=== PATIENT | male | born 1990 | race Caucasian/White ===

== ENCOUNTER 2022-06-05 04:10 | Emergency (ER) | payer SELFPAY ==
[~2022-06-05] VITALS: Ht 175.3 cm; Wt 113.5 kg
[2022-06-05 05:19] LABS: BASOPHILS % 0.5 % (0.0-2.0); HEMATOCRIT. 50.9 % (42.0-52.0); HEMOGLOBIN. 17.8 g/dL (14.0-18.0); LYMPHOCYTES % 48.5 % (20.0-50.0); MEAN CORPUSCULAR VOLUME 85.8 fL (80.0-94.0); MEAN PLATELET VOLUME 7.4 fl (7.4-10.4); MONOCYTES % 7.3 % (2.0-8.0); NEUTROPHILS % 41.7 % (40.0-76.0); PLATELET 285 x1000/uL (130-400); RED BLOOD CELL COUNT 5.94 mill/uL (4.7-6.1); RED CELL DISTRIBUTION WIDTH 13.2 % (11.6-14.6)
[2022-06-05 05:25] LABS: CHLORIDE 99 mEq/L (98-107)
[2022-06-05] MEDS ORDERED: SODIUM CHLORIDE 0.9% 1,000 ML IV ONE (05:30)
[2022-06-05] MEDS ORDERED: METOCLOPRAMIDE HCL 10MG/2ML VIAL IV ONE (05:30)
[2022-06-05] MEDS ORDERED: ASPIRIN 81MG TABLET PO ONE (05:30)
[2022-06-05] MEDS ORDERED: ACETAMINOPHEN 325MG TABLET PO ONE (05:30)
[2022-06-05 05:33] LABS: ETHANOL BLOOD < 10 mg/dL
[2022-06-05 12:07] LABS: CLARITY URINE CLEAR (CLEAR); COLOR URINE YELLOW (YELLOW); KETONES URINE 1+ (NEGATIVE); LEUKOCYTE ESTERASE URINE NEGATIVE (NEGATIVE); NITRITE URINE NEGATIVE (NEGATIVE); OCCULT BLOOD URINE NEGATIVE (NEGATIVE); PROTEIN URINE TRACE (NEGATIVE); SPECIFIC GRAVITY URINE 1.048 (1.005-1.030); UROBILINOGEN URINE 0.2 E.U./dL (0.2-1.0)
[2022-06-05 12:35] LABS: *AMPHETAMINES SCREEN URINE NEGATIVE (NEGATIVE); *BARBITURATES SCREEN URINE NEGATIVE (NEGATIVE); *BENZODIAZEPINES SCREEN URINE NEGATIVE (NEGATIVE); *COCAINE SCREEN URINE NEGATIVE (NEGATIVE); CANNABINOID URINE SCREEN NEGATIVE (NEGATIVE); METHADONE URINE SCREEN NEGATIVE (NEGATIVE); OPIATES URINE SCREEN NEGATIVE (NEGATIVE); PHENCYCLIDINE URINE SCREEN NEGATIVE (NEGATIVE)
[2022-06-05] MEDS ORDERED: DIPHENHYDRAMINE 50MG/ML VIAL IV PRN (13:30)
[2022-06-05] MEDS ORDERED: TRAMADOL 50MG TABLET PO PRN (13:30)
[2022-06-05] MEDS ORDERED: ACETAMINOPHEN 325MG TABLET PO PRN ×2 (13:30)
[2022-06-05] MEDS ORDERED: GUAIFENESIN 200MG/10ML SUGAR FREE UDC PO PRN (13:30)
[2022-06-05] MEDS ORDERED: CLONIDINE 0.1MG TABLET PO PRN (13:30)
[2022-06-05] MEDS ORDERED: NALOXONE HCL 0.4MG/ML VIAL IV PRN (13:45)
[2022-06-05 14:00] VITALS: BP 136/87
[2022-06-05] MEDS ORDERED: DEXTROSE 50% WATER 50ML SYRINGE IV PRN (14:15)
[2022-06-05] MEDS ORDERED: CLOPIDOGREL 75MG TABLET PO SCH (14:30)
[2022-06-05] MEDS ORDERED: SUMATRIPTAN SUCCINATE 25MG TABLET PO NR (14:45)
[2022-06-05] MEDS ORDERED: MAGNESIUM GLUCONATE 500MG TABLET PO SCH (14:45)
[2022-06-05] MEDS ORDERED: BLOOD SUGAR DIAGNOSTIC STRIP TEST SCH (17:00)
[2022-06-05] MEDS ORDERED: INSULIN LISPRO 100 UNITS/ML SUBCUT SCH (18:20)
[2022-06-05] MEDS ORDERED: FAMOTIDINE 20MG TABLET PO SCH (21:00)
== END 2022-06-05 16:32 | disposition left against medical advice (07) ==
LOC: ER 04:10 → EDBEDREQTM 06:08 → EDBEDREQ 06:08 → ER 16:32 → CANBEDREQ 16:40
DX: R29.810 Facial weakness (principal); R51.9 Headache, unspecified; R20.0 Anesthesia of skin; R20.2 Paresthesia of skin; R00.0 Tachycardia, unspecified; I45.2 Bifascicular block; E11.9 Type 2 diabetes mellitus without complications; Z86.73 Personal history of transient ischemic attack (TIA), and cerebral infarction without residual deficits
CPT/HCPCS: 36415; 70450; 71045; 80053; 80305; 80320; 81003; 82962; 84443; 84484; 85025; 93005; 96361; 96374; 99291; J2765; J7030; Z7610; G0480

== ENCOUNTER 2025-01-17 12:27 | Emergency (ER) | payer OTHER ==
[~2025-01-17] VITALS: Ht 175.3 cm; Wt 109.0 kg
[2025-01-17 12:30] VITALS: O2SAT 99
[2025-01-17] MEDS: KETOROLAC 15MG/ML VIAL IM ONE (13:00)
[2025-01-17] MEDS ORDERED: LIDO700A30 TP (13:50)
[2025-01-17] MEDS ORDERED: CYCL10TA21 MT (13:50)
[2025-01-17] MEDS: ACETAMINOPHEN 500MG TABLET PO ONE (14:02)
[2025-01-17] MEDS: LORAZEPAM 1MG TABLET PO ONE (14:02)
[2025-01-17 14:03] VITALS: BP 147/103; PULSE 91; RESP 14; TEMP 36.6; O2SAT 98
== END 2025-01-17 14:24 | disposition home or self-care (01) ==
LOC: ER 12:27
DX: M62.838 Other muscle spasm (principal); E11.9 Type 2 diabetes mellitus without complications; Z86.73 Personal history of transient ischemic attack (TIA), and cerebral infarction without residual deficits; Z91.041 Radiographic dye allergy status; Z88.6 Allergy status to analgesic agent
CPT/HCPCS: 73030; 73502; 99284; J1885